=== PATIENT | male | born 1975 | race American Indian/Alaskan Native ===

== ENCOUNTER 2023-02-24 03:08 | Outpatient (CLI) | payer MEDICAID, SELFPAY | END 2023-02-24 03:09 | disposition home or self-care (01) | LOC: AMB 02-27 23:58 | PROVIDERS: Visit Provider Family Medicine | DX: S99.912A Unspecified injury of left ankle, initial encounter (principal); V48.1XXA Car passenger injured in noncollision transport accident in nontraffic accident, initial encounter; Y92.410 Unspecified street and highway as the place of occurrence of the external cause | CPT/HCPCS: A0998 ==